=== PATIENT | male | born 1955 | race African-American/Black ===

== ENCOUNTER → 2017-07-12 | Outpatient (CLI) | payer MEDICAID ==
--- NOTE | 2017-07-12 17:03 | RADIOLOGY REPORT PS360 ---
CHEST(2 VIEWS-NOT PORTABLE) HISTORY: COUGH ORDERING PHYSICIAN: José Hooks MD PATIENT AGE: 62 years COMPARISON: None available FINDINGS: The cardiomediastinal silhouette and pulmonary vascularity are within normal limits. Calcified granuloma is present in the left perihilar region with calcified nodes in the left hilum. No lobar consolidation or collapse.. No acute bony abnormalities. IMPRESSION: No acute finding. Old granulomatous disease.
== END ==
LOC: RAD 16:28
DX: R05 Cough (principal)